=== PATIENT | male | born 1995 | race Caucasian/White ===

== ENCOUNTER 2018-07-07 16:06 | Observation (INO) ==
[2018-07-07] MEDS ORDERED: Dexamethasone 4 MG/ML VIAL ONE (17:25)
[2018-07-07] MEDS ORDERED: *HR* Succinylcholine 200 MG/10 ML VIAL IVP ONE (17:25)
[2018-07-07] MEDS ORDERED: *HR* Rocuronium Bromide 50 MG/5 ML VIAL ONE (17:25)
[2018-07-07] MEDS ORDERED: Ondansetron 4 MG/2 ML VIAL ONE (17:25)
[2018-07-07] MEDS ORDERED: Neostigmine Methylsulfate 3 MG/3 ML SYRINGE ONE (17:25)
[2018-07-07] MEDS ORDERED: Lidocaine -MPF 2% 2 ML VIAL ONE (17:25)
[2018-07-07] MEDS ORDERED: *HR* Midazolam HCl 2 MG/2 ML VIAL ONE (17:26)
[2018-07-07] MEDS ORDERED: *HR* FentaNYL (PF) 100 MCG/2 ML VIAL ONE (17:26)
[2018-07-07] MEDS ORDERED: *HR* Propofol 200 MG/20 ML VIAL IVP ONE (17:27)
[2018-07-07] MEDS ORDERED: 0.9 % Sodium Chloride 1,000 ML ONE (17:28)
[2018-07-07] MEDS ORDERED: Lidocaine -MPF 4% 5 ML AMPUL ONE (17:29)
[2018-07-07] MEDS ORDERED: CefOXitin 1,000 MG VIAL ONE (17:31)
--- NOTE | 2018-07-07 17:36 | Acute Care Surgery H&P ---
Date of Encounter: 07/07/18 Time of Encounter: 17:30 Assessment and Plan (1) Acute appendicitis with localized peritonitis without abscess Current Visit: Yes Status: Acute The assessment and plan as outlined above was discussed with the patient and/or family members who expressed understanding and agreement. All questions were answered. The patient has acute appendicitis. We will plan laparoscopic appendectomy. I discussed the risks and benefits with him and he wished to proceed. Qualifiers: Appendicitis gangrene presence: without gangrene Appendicitis perforation presence: without perforation Qualified Code(s): K35.30 - Acute appendicitis with localized peritonitis, without perforation or gangrene History of Present Illness Chief complaint: Abdominal pain HPI: Mr. Vizcaino is a 22 year old male With a 1 day history of abdominal pain this started out as a diffuse abdominal pain and then localized right lower quadrant prior to emergency room evaluation at [facility]. CAT scan of the abdomen demonstrated a dilated appendix with minimal inflammation around the appendix, however, the patient had right lower quadrant pain and was treated with Toradol. After treatment with Toradol the abdominal pain improved. The patient has leukocytosis of 16,000. He has positive anorexia. He now presents for treatment of acute appendicitis Past Med Surg Social Fam HX - Past Medical History Medical history: no medical history - Social History Smoking Status: Never smoker Smokeless Tobacco Status: No Alcohol use: none Drug use: none - Family History Mother History Unknown: Yes Father History Unknown: Yes Medications and Allergies Doxycycline 07/06/15 [History] Ibuprofen [Motrin] 600 mg PO Q8HR PRN #21 tab 07/06/15 [Rx] Allergy/AdvReac Type Severity Reaction Status Date / Time Amoxicillin Allergy Rash Verified 07/06/15 18:57 Review of Systems All systems PM: The remainder of the systems were reviewed and are negative General Surgery Exam - General physical appearance well developed, well nourished, moderate pain - Respiratory normal expansion, normal respiratory effort, clear to percussion, clear to auscultation - Cardiovascular Cardiovascular exam: Present: RRR, distant heart sounds - Abdomen Abdomen general surgery: Present: bowel sounds present, soft, non tender - Integumentary Integumentary general surgery: Present: warm and dry, no abnormal pigmentation - Neurologic Present: CN 2-12 grossly intact, normal coordination, normal sensation - Psychiatric Psychiatric general surgery: Present: appropriate, oriented to person, oriented to place, oriented to time, speech is normal, memory intact Results - Labs All other labs normal.
[2018-07-07] MEDS ORDERED: CefOXitin 2,000 MG VIAL ONE (18:01)
--- NOTE | 2018-07-07 18:06 | Anesthesia Evaluation PreOp ---
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 Any Significant HX Other Medical History: Renal (kidney stone) Anesthesia History: Past Anesthesia (none, no known family hx of anes complications) Alcohol Use: none Drug use: none Medications and Allergies Doxycycline 07/06/15 [History] Ibuprofen [Motrin] 600 mg PO Q8HR PRN #21 tab 07/06/15 [Rx] Allergy/AdvReac Type Severity Reaction Status Date / Time Amoxicillin Allergy Rash Verified 07/06/15 18:57 - Meds/Allergy Pre-op Review Medications Reviewed: Yes Allergies Reviewed: Yes Beta Blockers on Current Med List: No Anesthesia Exam NPO (# of Hours): acute abdomen - HEENT Pupil (Motor): Pupils equal, EOMI Mallampati: I Teeth: Normal Oral Opening: Greater than 3 - BANKING SERVICES CLERK LOC: Oriented BANKING SERVICES CLERK Motor: Normal RUE, Normal LUE, Normal RLE, Normal LLE, Normal Face BANKING SERVICES CLERK Sensory: Normal: RUE, LUE, RLE, LLE, Face - Cardiac Rhythm: Regular - Pulmonary Breath Sounds: bilateral Clear Respiratory Effort: Symmetrical Anesthesia Assess/Plan ASA Score: 1 Level of consciousness: Cooperative Anesthetic Plan: General Monitoring Plan: Standard Monitors Recovery Plan: PACU
[2018-07-07] MEDS ORDERED: *HR* Promethazine 25 MG/ML VIAL IVP PRN (18:07)
[2018-07-07] MEDS ORDERED: *HR* FentaNYL (PF) 100 MCG/2 ML VIAL IVP PRN (18:07)
[2018-07-07] MEDS ORDERED: *HR* Meperidine 25 MG/ML SYRINGE IVP PRN (18:07)
[2018-07-07] MEDS ORDERED: *HR* OxyCODONE Immed Rel 5 MG TABLET PO PRN (18:07)
[2018-07-07] MEDS ORDERED: Ondansetron 4 MG/2 ML VIAL IVP ONE (18:07)
[2018-07-07] MEDS ORDERED: SUGAMMADEX SODIUM 500 MG/5 ML VIAL IV ONE (18:54)
--- NOTE | 2018-07-07 19:01 | Operative Note ---
Date of procedure: 07/07/18 Pre-op diagnosis: Acute appendicitis Post-op diagnosis: same Procedure: Laparoscopic appendectomy Anesthesia: CHRISTINA Surgeon: Yvon Ashton Was there an staff assistant present: No Estimated blood loss (cc): 10 Specimen: Appendix Condition: stable Disposition: PACU Procedure in Detail: After informed consent the patient is taking major operative suite placed in the supine position given adequate general endotracheal anesthesia. The abdomen was prepped and draped in sterile fashion utilizing ChloraPrep standard draping techniques. Timeout was taken and the patient was identified. I made a vertical midline incision below the umbilicus and dissected down the level of the fascia. I placed 2 stitches of 0 Vicryl as stay stitches. The abdomen was entered visually. I placed a Mcfarlane trocar and insufflated the abdomen to 15 mm pressure CO2. A 5 mm trochars placed in the suprapubic area. A 12 mm trochars placed subcostally area. The appendix was visualized. The appendix was dilated with visible pus on the surface but not perforated. I elevated the appendix and divided some of the lateral peritoneal attachments with electrocautery. The mesial appendix was divided with a vascular load on the laparoscopic stapler. The appendix was divided with a gastrointestinal load on the laparoscopic stapler. The appendix was removed through the umbilical port site in the specimen bag. I irrigated with copious amounts of antibiotic containing solution. There is no evidence of bleeding. There is no evidence of abscess. The staple lines on the mesoappendix and cecum were visualized and photographed. Both staple lines were intact. All trochars were removed. The fascia was closed with 0 Vicryl. Skin was closed with 2-0 and 4-0 Vicryl.
[2018-07-07] MEDS ORDERED: OXYCODONE Oral CONC 10 MG/0.5 ML ORAL.SYG SL PRN (20:24)
[2018-07-07] MEDS ORDERED: 0.9 % Sodium Chloride 1,000 ML IVC SCH (20:24)
[2018-07-07] MEDS: *HR* OxyCODONE/APAP 5/325 TABLET PO PRN (20:58)
--- NOTE | 2018-07-07 22:37 | Anesthesia Evaluation Post Op ---
Date of Encounter: 07/07/18 Time of Encounter: 22:36 - Vital Signs Vital Signs: Vital Signs/O2 Sat, Most Current Temp Pulse Resp BP Pulse Ox 97.9 F 100 16 116/70 96 07/07/18 21:01 07/07/18 21:45 07/07/18 21:45 07/07/18 21:45 07/07/18 21:01 - Lungs Lungs: Clear Ascult./Percussion - Airway Airway: Non-obstructed - Cardiovascular Regular Rate - Mental Status Mental Status: Asleep with brisk response to light stimulation - Pain Pain Scale: 0 Pain Scale used: Numeric (1 - 10) - Nausea Vomiting Nausea Vomiting: Not Present - Hydration Hydration: NPO - Discharge PostOp Status: Transfer Patient to floor
[2018-07-08] MEDS: cefOXitin 2,000 MG in Water for inj. (sterile) 20 ML 20 ML IVP SCH ×2 (00:46→07:32)
[2018-07-08] MEDS: *HR* OxyCODONE/APAP 5/325 TABLET PO PRN (05:17)
--- NOTE | 2018-07-08 07:04 | Discharge Summary ---
- NOTES TO OUTPATIENT PROVIDER Notes to Outpatient Provider: Uncomplicated acute appendicitis. Orders not resulted at time of discharge: Pending orders 07/07/18 18:52 Surgical Pathology [PTH] Routine Date of Encounter: 07/08/18 Time of Encounter: 06:20 - Discharge Diagnosis (1) Acute appendicitis with localized peritonitis without abscess Priority: Primary Status: Acute Comments: Uncomplicated acute appendicitis. Pus was present on the surface of the appendix without perforation or abscess formation Qualifiers: Appendicitis gangrene presence: without gangrene Appendicitis perforation presence: without perforation Qualified Code(s): K35.30 - Acute appendicitis with localized peritonitis, without perforation or gangrene General Surgery Exam Initial Vital Signs Temp Pulse Resp BP Pulse Ox 97.6 F 61 14 103/56 100 07/07/18 19:12 07/07/18 19:12 07/07/18 19:12 07/07/18 19:12 07/07/18 19:12 - General physical appearance well developed, well nourished, moderate pain - Respiratory normal expansion, normal respiratory effort, clear to percussion, clear to auscultation - Cardiovascular Cardiovascular exam: Present: RRR, distant heart sounds - Abdomen Abdomen general surgery: Present: bowel sounds present, soft, non tender - Incision Incision: Present: clean and dry, intact - Integumentary Integumentary general surgery: Present: warm and dry, no abnormal pigmentation - Neurologic Present: CN 2-12 grossly intact, normal coordination, normal sensation - Psychiatric Psychiatric general surgery: Present: appropriate, oriented to person, oriented to place, oriented to time, speech is normal, memory intact - Hospital Course Hospital course: Mr. Vizcaino is a 22 year old male Who was admitted through the emergency department with acute uncomplicated appendicitis. Laparoscopic appendectomy with no complications. His postoperative pain is under good control. He should be ready for discharge after completion of this second IV antibiotic at 8 AM this morning. Incisions are clean and dry - Time Spent with Patient Total time spent providing and/or coordinating discharge services: I spent 30 minutes today discussing lifting restrictions as well as when he can return to work. I think is reasonable for him to return to work on . Percocet for pain. The patient would also like to take nonsteroidal anti- inflammatory not recommended 800 mg 3 times a day Motrin using Percocet for breakthrough pain Less than 30 minutes Specific discharge activities: Continue with ambulation. Ice pack as needed - Discharge Medications Prescriptions: New OxyCODONE/APAP 5/325 [Percocet 5/325 MG] 1 each PO Q6HR PRN 6 Days #20 tablet PRN Reason: Pain Home Medications: OxyCODONE/APAP 5/325 [Percocet 5/325 MG] 1 each PO Q6HR PRN 6 Days #20 tablet 07/08/18 [Rx] Allergies/Adverse Reactions: Allergy/AdvReac Type Severity Reaction Status Date / Time Amoxicillin Allergy Rash Verified 07/07/18 23:03 diphenhydramine Allergy See Verified 07/07/18 23:03 [From Benadryl] Comments Date of admission: 07/07/18 17:01 Primary care physician: Marc Hair MD Discharging clinician: Yvon Ashton Anticipated date of discharge: 07/08/18 Procedures and tests throughout hospitalization: Surgical pathology Labs on day of discharge: None - Patient Status Disposition: Home, Self-Care Condition: Good Functional capacity at discharge: independent ambulation Overall status at discharge: patient is progressing back to baseline - Discharge Instructions Instructions: Appendicitis (DC) Follow Up With: Marc Hair MD [Primary Care Provider] - Yvon Ashton MD [Partnered Physician] - Additional Instructions: Ambulate as necessary. He may return to work on . Ice pack as necessary. Please contact the office for Dr. Ashton and make an appointment for Dr. Ashton or Dr. Tania Colón in 2 weeks - Diet and Activity Activity: increase activity as tolerated Diet: advance to your usual diet
[2018-07-08 07:37] VITALS: BP 105/61
== END 2018-07-08 08:31 | disposition home or self-care (01) ==
LOC: 2ANU
PROVIDERS: ADMIT Surgery; ATTEND Surgery